=== PATIENT | male | born 1975 | race Caucasian/White ===

== ENCOUNTER 2020-11-29 16:14 | Emergency (ER) | payer OTHER, SELFPAY ==
[2020-11-29 16:15] VITALS: BP 132/104; PULSE 118; RESP 18; TEMP 36.1; O2SAT 95; BMI 28.3
[2020-11-29 16:27] VITALS: BP 139/92; PULSE 113; RESP 20; O2SAT 92; O2SAT 93
--- NOTE | 2020-11-29 16:52 | RAD_ITS ---
STUDY: X-RAY CHEST REASON FOR EXAM: Male, 45 years old. cough TECHNIQUE: Frontal portable view of the chest COMPARISON: None. FINDINGS: The lungs are clear and expanded. There is no demonstrated pleural abnormality. Normal size heart. Normal mediastinum and daphne. Normal visualized pulmonary arteries. Normal visualized aortic arch and descending thoracic aorta. Normal visualized thoracic spine. Normal visualized ribs, clavicles, and shoulders. There is no demonstrated abnormality of the visualized soft tissue structures of the upper abdomen. RAD/Chest 1 View (Portable) IMPRESSION: Normal x-ray examination of the chest. Electronically Signed: Garrett Hathaway MD at 17:24 EDT Tel , Service support ,
[2020-11-29 17:07] LABS: Absolute Lymphocyte Count 0.76 X10^3/uL (0.83-4.51); Absolute Neutrophil Count 7.8 X10^3/uL (2.0-7.7); Basophil# 0.02 X10^3/uL; Basophil% 0.2 % (0-1); Eosinophil# 0.29 X10^3/uL; Hematocrit 47.3 % (40-54); Hemoglobin 15.9 g/dL (13.0-16.5); Lymphocyte # 0.76 X10^3/ul (0.83-4.51); Lymphocyte % 7.9 % (19-41); Mean Corp Hgb Conc 33.6 g/dL (32-36); Mean Corpuscular Hgb 27.8 pg (27.0-32.0); Mean Corpuscular Volume 82.7 fL (80-94); Mean Platelet Vol. 10.4 fl (6.2-12.0); Monocyte# 0.65 X10^3/uL; Monocyte% 6.8 % (0-10); NRBC Flagged by Analyzer 0 % (0-5); Neutrophil # 7.84 X10^3/uL (2.7-7.7); Neutrophil % 81.6 % (47-70); Platelet Count 159 K/mm3 (150-450); RBC Distribution Width CV 12.8 % (11.6-14.6); RBC Distribution Width SD 38.4 fl (35.1-43.9); Red Blood Count 5.72 M/mm3 (4.6-6.2); White Blood Count 9.6 K/mm3 (4.4-11.0)
[2020-11-29 17:34] LABS: ALB/GLOB Ratio 1.1 RATIO (0.9-2.4); AST(SGOT) 29 U/L (15-37); Alanine Aminotransfer ALT/SGPT 53 U/L (16-61); Albumin, Serum 3.9 g/dL (3.2-5.0); Alkaline Phosphatase 77 U/L (45-117); Anion Gap 7 (5-15); BUN 12 mg/dL (7-18); BUN/Creat Ratio 12.6 RATIO (10-20); Calcium,Total 8.9 mg/dL (8.5-10.1); Chloride 105 mmol/L (98-107); Creatinine, Serum 0.95 mg/dL (0.70-1.30); EST Glomerular Filtration Rate 91 mL/min (>60); Est Glom Filt Rate - Afr Amer 110 mL/min (>60); Estimated Creatinine Clearance 112.96 ml/min; Globulin 3.4 g/dL (2.2-4.2); Glucose 98 mg/dL (74-106); Lactic Acid 1.1 mmol/L (0.4-1.9); Potassium 3.8 mmol/L (3.5-5.1); Protein, Total 7.3 g/dL (6.4-8.2); Sodium Level 139 mmol/L (136-145)
[2020-11-29] MEDS: Ketorolac 30 MG/ML Syringe IV (17:34)
[2020-11-29 17:40] LABS: D-Dimer Quantitative (DVT/PE) 3.05 FEU/ug/m (0.27-0.49)
--- NOTE | 2020-11-29 17:57 | CT_ITS ---
STUDY: CTA CHEST REASON FOR EXAM: Male, 45 years old. sob RADIATION DOSAGE (If Supplied By Facility): CTDIvol = ( 10.74 ) mGy, DLP = ( 431.77 ) mGycm TECHNIQUE: The examination was performed with the intravenous administration of IV 100mL Isovue-370. Post-processing of the angiographic images was performed, with multiplanar reformation and 3D reconstruction. Individualized dose optimization techniques were used for this CT. COMPARISON: Portable chest 11/29/2020 FINDINGS: There is less than optimal opacification of the pulmonary arteries due to suboptimal bolus technique however, there is no definitive evidence for intraluminal clot within the visualized portions of the vessels.. Normal thoracic aorta and visualized great vessels. There is no demonstrated aortic dissection. Normal heart and pericardium. Normal mediastinum. Normal hilar regions. Normal visualized trachea and bronchi. The lungs are well expanded. Normal pulmonary parenchyma. Normal pleura. Normal chest wall structures. Dorsal spine demonstrates mild degenerative change Normal visualized upper abdomen. CT/CTA Chest W/WO Contrast IMPRESSION: No acute abnormalities. No definitive evidence for pulmonary embolus given less than optimal opacification of the pulmonary arteries. Electronically Signed: Gabino Ledezma MD at 18:54 EDT , Service support ,
[2020-11-29 18:06] VITALS: BP 131/83; PULSE 101; RESP 29; TEMP 36.6; O2SAT 95
[2020-11-29 19:19] VITALS: BP 137/95; PULSE 108; RESP 24; O2SAT 94
[2020-11-29 19:29] LABS: Probe Check PASS; Specimen Processing Control PASS
[2020-11-29 19:48] VITALS: BP 142/95; PULSE 113; RESP 21; TEMP 36.6; O2SAT 94
--- NOTE | 2020-11-29 20:02 | EX.ED.DYSGE1 ---
HPI History of Present Illness Chief Complaint: Shortness of Breath Informant: patient and spouse/S.O. Onset/Context/Timing Onset: Days (4 days) Context: Gradual Onset Current Severity: Moderate Maximum Severity: Moderate Narrative Narrative: Patient reports cough and chest tightness. He states last he developed congestion and sinus pressure. Yesterday he developed a cough with clear sputum. He also has some chest tightness. Patient does complain of body aches but no fever or chills. No change in smell or taste. He did not get the Covid vaccine. Patient did take some cold medicine today that included dextromethorphan which may account for the patient's tachycardia. PFSH PFSH Medical History Non-smoker no medical history Home Medications doxycycline monohydrate 100 mg PO BID #20 cap 11/29/20 [Rx Last Taken Unknown] Allergy/AdvReac Type Severity Reaction Status Date / Time No Known Allergies Allergy Verified 11/29/20 16:17 Social History Smoking Status: Never smoker ROS ROS ED Constitutional Constitutional ED: Denies chills or fever(s) Eyes Eyes: Denies change in vision ENT ENT ED: Denies sore throat Cardiovascular Cardiovascular: Reports chest pain Respiratory/Chest Respiratory/Chest: Reports cough, dyspnea and sputum Gastrointestinal Gastrointestinal: Denies abdominal pain, diarrhea, nausea or vomiting Genitourinary Genitourinary ED: Denies dysuria Musculoskeletal Musculoskeletal: Reports myalgias; Denies back pain Integumentary Denies rash Neurologic Neurologic: Denies headache(s) or weakness Psychiatric Psychiatric: Denies anxiety or depression Endocrine Endocrinology: Denies polydipsia or polyuria Allergic/Immunologic Allergic/Immunologic ED: Denies urticaria EXAM Physical Exam Const Vital Signs: 11/29/20 16:15 11/29/20 16:27 11/29/20 18:06 Temperature 97.0 F L 97.9 F Temperature Source Temporal Temporal Pulse Rate 118 H 113 H 101 H Respiratory Rate 18 20 H 29 H Respiratory Effort Normal Respiratory Depth Normal Respiratory Pattern Normal Blood Pressure 132/104 H 139/92 H 131/83 H Blood Pressure Mean 113 107 99 Pulse Ox 95 93 95 Oxygen Delivery Method Room Air Room Air Room Air 11/29/20 19:19 11/29/20 19:48 11/29/20 20:15 Temperature 97.8 F Temperature Source Temporal Pulse Rate 108 H 113 H 113 H Respiratory Rate 24 H 21 H 16 Respiratory Effort Respiratory Depth Respiratory Pattern Blood Pressure 137/95 H 142/95 H 135/91 H Blood Pressure Mean 109 110 Pulse Ox 94 94 95 Oxygen Delivery Method Room Air Room Air Positive well nourished and well developed General Appearance ED: well developed HEENT Reports normocephalic and head/scalp atraumatic Eyes PERRL and EOMs intact bilaterally Neck supple Chest Wall inspection of chest normal and palpation of chest normal Resp normal respiratory effort and clear to auscultation bilaterally Cardio regular rhythm Rate: tachycardic GI normal to inspection, nondistended, normoactive bowel sounds Palpation: soft Extremity normal to inspection Neuro oriented x3 and no sensory deficits noted Sensorium / Orientation: alert Motor Exam: strength 5/5 throughout Psych mental status grossly normal Skin no rashes or lesions noted MDM MDM MDM Narrative Medical decision making narrative: Lab work, chest x-ray, Covid test ordered. Lab Data Attestation: I reviewed the patient's lab results. Labs: Laboratory Results - last 24 hr 11/29/20 11/29/20 11/29/20 16:55 16:55 16:55 WBC 9.6 RBC 5.72 Hgb 15.9 Hct 47.3 MCV 82.7 MCH 27.8 MCHC 33.6 RDW Std Deviation 38.4 RDW Coeff of Sergio 12.8 Plt Count 159 MPV 10.4 Immature Gran % (Auto) 0.500 Neut % (Auto) 81.6 H Lymph % (Auto) 7.9 L [place] % (Auto) 6.8 Eos % (Auto) 3.0 Baso % (Auto) 0.2 Absolute Neuts (auto) 7.8 H Absolute Lymphs (auto) 0.76 L Nucleated RBC % 0 D-Dimer Quant (PE/DVT) 3.05 H* Sodium 139 Potassium 3.8 Chloride 105 Carbon Dioxide 27.0 Anion Gap 7 BUN 12 Creatinine 0.95 Estim Creat Clear Calc 112.96 Est GFR (MDRD) Af Amer 110 Est GFR (MDRD) Non-Af 91 BUN/Creatinine Ratio 12.6 Glucose 98 Lactic Acid Calcium 8.9 Total Bilirubin 1.10 H AST 29 ALT 53 Alkaline Phosphatase 77 Troponin I High Sens 5.0 Total Protein 7.3 Albumin 3.9 Globulin 3.4 Albumin/Globulin Ratio 1.1 COVID-19 (JOSELO) 11/29/20 11/29/20 16:55 18:21 WBC RBC Hgb Hct MCV MCH MCHC RDW Std Deviation RDW Coeff of Sergio Plt Count MPV Immature Gran % (Auto) Neut % (Auto) Lymph % (Auto) [place] % (Auto) Eos % (Auto) Baso % (Auto) Absolute Neuts (auto) Absolute Lymphs (auto) Nucleated RBC % D-Dimer Quant (PE/DVT) Sodium Potassium Chloride Carbon Dioxide Anion Gap BUN Creatinine Estim Creat Clear Calc Est GFR (MDRD) Af Amer Est GFR (MDRD) Non-Af BUN/Creatinine Ratio Glucose Lactic Acid 1.1 Calcium Total Bilirubin AST ALT Alkaline Phosphatase Troponin I High Sens Total Protein Albumin Globulin Albumin/Globulin Ratio COVID-19 (JOSELO) Negative Radiography Chest X-Ray - ED: 1 View, Read by ED Physician, Normal, Heart, Lungs and Mediastinum Diagnostic Testing: Radiology Impression Chest X-Ray 11/29/20 16:52 IMPRESSION: Normal x-ray examination of the chest. Electronically Signed: Garrett Hathaway MD at 17:24 EDT Tel , Service support , Chest CTA 11/29/20 17:57 IMPRESSION: No acute abnormalities. No definitive evidence for pulmonary embolus given less than optimal opacification of the pulmonary arteries. Electronically Signed: Gabino Ledezma MD at 18:54 EDT , Service support , Treatment and Re-Evaluation Comments:: Patient's chest x-ray per my interpretation was no infiltrate. Radiologist rotation is reviewed. Rapid Covid test returns negative. Blood work is unremarkable other than elevated D-dimer. CTA of the chest is obtained that reveals no evidence of PE or infiltrate. On repeat evaluation patient's heart rate is around 103. Test results discussed with he and . Patient be given prescription for doxycycline to treat bronchitis. Discharge Plan Triage Chief Complaint: Shortness of Breath ED Provider: Elizabeth Eng Dx/Rx/DC Orders Clinical Impression: Bronchitis Instructions: Acute Bronchitis Prescriptions: New doxycycline monohydrate 100 MG capsule 100 mg PO BID Qty: 20 RF: 0 Primary Care Provider: Vasiliy Colbert Referrals: Vasiliy Colbert DO [Primary Care Provider] - 5-7 Days Disposition Disposition: Home, Self Care Discharge Date/Time: 11/29/20 20:16
[2020-11-29] MEDS: Doxycycline 100 MG CAPSULE PO (20:11)
[2020-11-29 20:15] VITALS: BP 135/91; PULSE 113; RESP 16; O2SAT 95
== END 2020-11-29 20:16 | disposition home or self-care (01) ==
PROVIDERS: Emergency Provider Emergency Medicine; PCP Family Medicine
DX: J20.9 Acute bronchitis, unspecified (principal)
CPT/HCPCS: 71045; 71275; 80053; 83605; 84484; 85025; 85379; 87040; 87426; 87635; 96374; 99284; Q9967; U0005; A4216; U0003

== ENCOUNTER → 2023-07-19 | Outpatient (CLI) | payer BC, SELFPAY ==
[2023-07-19 08:02] LABS: Absolute Lymphocyte Count 1.63 X10^3/uL (0.83-4.51); Absolute Neutrophil Count 4.5 X10^3/uL (2.0-7.7); Basophil# 0.04 X10^3/uL; Basophil% 0.6 % (0-1); Eosinophils% 4.2 % (0-5); Hematocrit 45.1 % (40-54); Lymphocyte # 1.63 X10^3/ul (0.83-4.51); Lymphocyte % 22.9 % (19-41); Mean Corp Hgb Conc 33.3 g/dL (32-36); Mean Corpuscular Hgb 27.8 pg (27.0-32.0); Mean Corpuscular Volume 83.5 fL (80-94); Mean Platelet Vol. 10.8 fl (6.2-12.0); Monocyte# 0.61 X10^3/uL; Monocyte% 8.6 % (0-10); NRBC Flagged by Analyzer 0 % (0-5); Neutrophil # 4.52 X10^3/uL (2.7-7.7); Neutrophil % 63.3 % (47-70); Platelet Count 201 K/mm3 (150-450); RBC Distribution Width CV 13.3 % (11.6-14.6); RBC Distribution Width SD 40.7 fl (35.1-43.9); White Blood Count 7.1 K/mm3 (4.4-11.0)
[2023-07-19 08:35] LABS: ALB/GLOB Ratio 1.3 RATIO (0.9-2.4); AST(SGOT) 27 U/L (15-37); Alanine Aminotransfer ALT/SGPT 42 U/L (16-61); Albumin, Serum 3.9 g/dL (3.2-5.0); Alkaline Phosphatase 69 U/L (45-117); Anion Gap 4 (5-15); BUN 16 mg/dL (7-18); BUN/Creat Ratio 14.8 RATIO (10-20); Calcium,Total 9.1 mg/dL (8.5-10.1); Chloride 108 mmol/L (98-107); Cholesterol 238 mg/dL (200); Creatinine, Serum 1.08 mg/dL (0.70-1.30); EST Glomerular Filtration Rate 77 mL/min (>60); Est Glom Filt Rate - Afr Amer 94 mL/min (>60); Globulin 3.1 g/dL (2.2-4.2); Glucose 102 mg/dL (74-106); High Density Lipoprotein 50 mg/dL; Sodium Level 140 mmol/L (136-145); Triglycerides 69 mg/dL; Very Low Density Lipoprotein 14 mg/dL (5-40)
[2023-07-20 14:10] LABS: Lipoprotein A 25.4 nmol/L (<75.0)
== END | disposition home or self-care (01) ==
PROVIDERS: PCP Family Medicine; Referring Provider Family Medicine; Visit Provider Family Medicine
DX: Z00.00 Encounter for general adult medical examination without abnormal findings (principal); Z82.49 Family history of ischemic heart disease and other diseases of the circulatory system
CPT/HCPCS: 36415; 80053; 80061; 83695; 85025

== ENCOUNTER → 2023-08-16 | Outpatient (CLI) | payer BC, SELFPAY ==
--- NOTE | 2023-08-16 12:48 | ECHOD_ITS ---
Reason For Study: MURMUR Procedure This was a 2D Doppler, Color Flow transthoracic echocardiogram. Exam performed in department. Left Ventricle Normal LV size. Left ventricular systolic function is normal. The estimated ejection fraction is 60 %. No regional wall motion abnormalities noted. Right Ventricle Normal RV size. Normal systolic function. Atria Normal left atrium. Normal right atrium. Mitral Valve Bileaflet diffuse mitral valve thickening. Mild-Moderate (1-2+) eccentric mitral valve insufficiency. Tricuspid Valve Normal tricuspid valve. Mild tricuspid valve insufficiency. Aortic Valve Trisinus/trileaflet aortic valve. Pulmonic Valve Normal pulmonic valve. Great Vessels Normal aortic root. The pulmonary artery is normal size. Inferior vena cava collapse with respiration. Pericardium/Pleural No pericardial effusion. MMode/2D Measurements & Calculations LVIDd: 5.8 cm IVSd: 1.2 cm LVOT diam: 2.2 cm LVIDs: 3.0 cm LVPWd: 1.0 cm LVOT area: 3.8 cm2 RVDd: 3.8 cm FS: 48.6 % Ao root diam: 3.8 cm LAV(MOD-bp): 73.4 ml LVAd ap4: 25.2 cm2 LAV(MOD-bp) Indexed: 32.4 ml/m2 LVLd ap4: 7.2 cm LAV(MOD-sp2): 77.1 ml EDV(MOD-sp4): 74.7 ml LAV(MOD-sp4): 56.4 ml EDV(sp4-el): 74.8 ml LVAs ap4: 14.2 cm2 LVLs ap4: 5.7 cm ESV(MOD-sp4): 29.8 ml ESV(sp4-el): 29.9 ml EF(MOD-sp4): 60.0 % EF(sp4-el): 60.1 % LVAd ap2: 27.3 cm2 SV(MOD-sp4): 44.8 ml SV(MOD-sp2): 43.7 ml LVLd ap2: 8.2 cm EDV(MOD-sp2): 75.8 ml EDV(sp2-el): 76.9 ml LVAs ap2: 15.6 cm2 LVLs ap2: 6.4 cm ESV(MOD-sp2): 32.1 ml ESV(sp2-el): 32.3 ml EF(MOD-sp2): 57.7 % SV(sp4-el): 44.9 ml LA dimension(2D): 4.4 cm LA A4 area: 20.6 cm2 RA A4 area: 16.8 cm2 TAPSE: 1.9 cm Time Measurements MV dec time: 0.17 sec Doppler Measurements & Calculations MV E max thomas: 74.9 cm/sec Lat Peak E' Thomas: 17.1 cm/sec Med Peak E' Thomas: 9.2 cm/sec MV A max thomas: 66.7 cm/sec E/E' lat: 4.4 E/E' med: 8.1 MV E/A: 1.1 Ao V2 max: 144.8 cm/sec LV V1 max: 126.1 cm/sec MV dec slope: 450.4 cm/sec2 Ao max P.4 mmHg LV V1 max P.4 mmHg Ao V2 mean: 101.5 cm/sec LV V1 mean P.5 mmHg Ao mean P.7 mmHg LV V1 mean: 87.0 cm/sec Ao V2 VTI: 29.0 cm LV V1 VTI: 22.4 cm AV (velocity ratio): 0.77 BRIE(I,D): 3.0 cm2 BRIE(V,D): 3.3 cm2 SV(LVOT): 85.7 ml PA V2 max: 111.5 cm/sec PI end-d thomas: 76.5 cm/sec PA max PG (full): 2.5 mmHg TR max thomas: 198.6 cm/sec TR max P.8 mmHg ECHO/Echo Complete Interpretation Summary Normal LV size. Left ventricular systolic function is normal. The estimated ejection fraction is 60 %. Bileaflet diffuse mitral valve thickening. Mild-Moderate (1-2+) eccentric mitral valve insufficiency. Ordering Physician: Vasiliy Colbert Referring Physician: Vsailiy Colbert Performed By: Jazmín Pang RDCS and Student
== END | disposition home or self-care (01) ==
LOC: CVS 12:38
PROVIDERS: PCP Family Medicine; Referring Provider Family Medicine; Visit Provider Family Medicine
DX: R01.1 Cardiac murmur, unspecified (principal)
CPT/HCPCS: 93306

== ENCOUNTER 2024-01-30 08:07 | Day surgery (SDC) | payer BC, OTHER, SELFPAY ==
[2024-01-30] VITALS (8 sets, daily range): BP systolic 118–128; BP diastolic 73–87; PULSE 72–90; RESP 14–18; TEMP 36.2–36.6; O2SAT 96–99; BMI 27.7
--- NOTE | 2024-01-30 08:19 | PRE.ANES_ITS ---
ASA Classification* ASA Classification ASA Classification: 2 Assessment & Plan Anesthesia* Anesthesia Assessment Anesthesia Assessment: Discussed sedation and/or anesthesia options, risks, benefits, and alternatives with patient/parents/legal guardian/POA. Questions invited. The patient/parents/legal guardian/POA seems to understand and agrees to proceed with anesthesia plan. Reviewed the physical assessment, medical history, allergy history and patient home medications list prior to surgery/procedure/anesthetic and documented any changes. Performed airway and anesthesia risk assessments. Anesthesia Type Anesthesia Type: MAC (see written pre anesthesia record for full assessment) Anesthesia Focused Assessment* Airway Assessment Mouth opens: >3 cm Mallampati Score: II Focused Labs Anesthesia Preop lab: CBC WBC 7.1 K/mm3 (4.4-11.0) 07/19/23 07:22 RBC 5.40 M/mm3 (4.6-6.2) 07/19/23 07:22 Hgb 15.0 g/dL (13.0-16.5) 07/19/23 07:22 Hct 45.1 % (40-54) 07/19/23 07:22 Plt Count 201 K/mm3 (150-450) 07/19/23 07:22 CHEMISTRY Potassium 4.0 mmol/L (3.5-5.1) 07/19/23 07:22 Sodium 140 mmol/L (136-145) 07/19/23 07:22 BUN 16 mg/dL (7-18) 07/19/23 07:22 Creatinine 1.08 mg/dL (0.70-1.30) 07/19/23 07:22 Glucose 102 mg/dL (74-106) 07/19/23 07:22 COAG Pre-Assessment Diagnosis/Proposed Procedure Planned Operative Procedure(s): COLONOSCOPY Anesthesia History 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 When Was Last Pacemaker Check QUESTION #4 FULL TEXT: You/Your Family Experience fever (hyperthermia) with Anesthesia Last Oral Intake Last Oral intake: Last Oral Intake NPO since Meds taken in AM with sips of water? Meds patient instructed to take am of surgery PONV PONV - director of real estate: PONV - director of real estate Female No 01/25/24 15:44 HX of Motion Sickness No 01/25/24 15:44 HX of N/V After Surgery No 01/25/24 15:44 Non-Smoker Yes 01/25/24 15:44 Duration of Surgery greater No 01/25/24 15:44 than 60 minutes Number of Risk Factors 1 01/25/24 15:44 PONV Score Low Risk 01/25/24 15:44 Height & Weight Height & Weight: Anesthesia: Height & Weight Height 6 ft 2 in 01/03/24 09:30 Respiratory Assessment Respiratory Assessment - director of real estate: Respiratory Tract Infection Hx - director of real estate Hx Respiratory Tract Infection No 01/25/24 15:44 STOP Sleep Apnea STOP Sleep Apnea - director of real estate: STOP Sleep Apnea - director of real estate Hx Hypertension No 01/25/24 15:44 Hx Sleep Apnea No 01/25/24 15:44 CPAP BIPAP Do you snore loudly (louder No 01/25/24 15:44 than talking or can be heard Do you often feel tired/ No 01/25/24 15:44 fatigued/ sleepy during daytime? Has anyone observed you stop No 01/25/24 15:44 breathing during sleep? STOP Results Negative 01/25/24 15:44 QUESTION #5 FULL TEXT : Do you snore loudly (louder than talking or can be heard through closed doors)? Tobacco Use History Tobacco Use History - director of real estate: Tobacco Use History - director of real estate Tobacco Use Smoking Status Never smoker 01/25/24 15:44 Hx Tobacco Use No 01/25/24 15:44 Years Smoking Packs Smoked per Day Smoking Cessation Date was within the last 15 years Hx Smoking Cessation Date Hx Smoking Cessation Counseling Hematologic Medial History Hematologic Hx - director of real estate: Hematologic Medical Hx - manager long term care Hx of Blood Transfusion No 01/25/24 15:44 Hx of Transfusion in last 3 No 01/25/24 15:44 Months Date of Last Transfusion (if within last 3 months) Ever experience any problems No 01/25/24 15:44 with transfusion(s)? Specify any problems Hx of Preganancy in last 3 N/A 01/25/24 15:44 Months Nurse Filling Out Transfusion [id number] 01/25/24 15:44 & Questions: Date: 01/25/24 01/25/24 15:44 Time: 15:46 01/25/24 15:44 Patient unable to answer at this time (ie. confused, unrespo /Reproduction History /Reproductive History - director of real estate: /Reproductive Hx- director of real estate Hx Now Gestational Age (in weeks): EDC: Hx Hx Para Hx Section SAB Active Medications Active Medications: Current Medications Generic Name Dose Route Start Last Admin Trade Name Freq PRN Reason Stop Dose Admin Lactated Ringer's 1,000 mls @ 15 mls/hr 01/30/24 08:15 IV .Q48H GAL PFSH Medical History History of echocardiogram Non-smoker Home Medications ?Medication ?Instructions ?Recorded ?Last Taken ?Type NK 01/25/24 Unknown History Allergy/AdvReac Type Severity Reaction Status Date / Time No Known Allergies Allergy Verified 01/25/24 15:43 Family History Father Hypertension A-fib Dementia CAD (coronary artery disease) Heart valve replaced Social History household members: spouse housing: house current occupational status: employed current occupation: [employer] Smoking Status: Never smoker alcohol intake: current alcohol intake frequency: holidays/special occasions only substance use type: does not use Review of Systems (Anesthesia) ROS Narrative System reviewed and no additional complaints, except as documented.
[2024-01-30] MEDS: Lactated Ringers 1,000 ML 15 ML IV (08:29)
--- NOTE | 2024-01-30 09:00 | COLBX_PTH ---
PATIENT: SHELBY GUZMAN LOC: EN U#:[id number] AGE/SX: 48/M ROOM: RE01/30/[address]: Dr. Jase Nowak MD : 1975 BED: DIS: 01/30/2024 SPEC #: [id number] RECD: 01/30/24 11:00 STATUS: LENORA OBI #: [id number] STEFFI: 01/30/24 09:[address]: Jase Nowak DEPT: SURGICAL PATHOLOGY RECD BY: Jaja Salgado ENTERED: 01/30/24 12:37 SP TYPE: COLON BX OTHR DR: Dr. Vasiliy Colbert DO Tissues: A - Sigmoid colon biopsy B - Rectum, NOS Procedures: Surgery Specimen Level IV HEADER OPERATION: Colonoscopy with biopsy and polypectomy PRE-OP DIAGNOSIS: Encounter for screening for malignant neoplasm of colon TISSUE SUBMITTED: A- Sigmoid polyp biopsy, B- Rectal polyp MICROSCOPIC DIAGNOSIS A. Sigmoid colon polyp, biopsy: Hyperplastic polyp. B. Rectal polyp, biopsy: Hyperplastic polyp. AM. 01/31/2024 MICROSCOPIC DESCRIPTION Slides are reviewed. GROSS DESCRIPTION A. Received in fixative is one container labeled with the patient's name and designated Sigmoid polyps biopsy. The specimen consists of multiple irregular fragments of light zazueta soft tissue that in aggregate measure 1.0 x 0.3 x 0.1 cm. The specimen is totally submitted in one cassette. B. Received in fixative is one container labeled with the patient's name and designated Rectal polyp. The specimen consists of one irregular fragment of one zazueta-pink polyp measuring 1.0 x 0.5 x 0.4cm. The entire specimen is submitted in one cassette. 01/30/2024 TC:5 [facility]:[id number]
--- NOTE | 2024-01-30 09:18 | PCM.HP.STD ---
HPI - General General Date of Admission: 01/30/24 Date of Service: 01/30/24 Chief Complaint: Colon cancer screening HPI Narrative SHELBY GUZMAN, is a 48 M who presents for elective screening colonoscopy. He has no family history of colon polyps or colon cancers. He denies any GI symptoms. PFSH Medical History History of echocardiogram Non-smoker Home Medications ?Medication ?Instructions ?Recorded ?Last Taken ?Type NK 01/25/24 Unknown History Allergy/AdvReac Type Severity Reaction Status Date / Time No Known Allergies Allergy Verified 01/25/24 15:43 Family History Father Hypertension A-fib Dementia CAD (coronary artery disease) Heart valve replaced Social History household members: spouse housing: house current occupational status: employed current occupation: [employer] Smoking Status: Never smoker alcohol intake: current alcohol intake frequency: holidays/special occasions only substance use type: does not use Vital Signs Vital Signs Vital Signs: 01/30/24 08:31 01/30/24 08:31 Temperature 98 F Temperature Source Temporal Pulse Rate 90 Respiratory Rate 18 Respiratory Pattern Normal Blood Pressure 128/87 H Blood Pressure Mean 100 Blood Pressure Source Monitor Blood Pressure Position Semi-Fowlers Blood Pressure Location Right Arm Pulse Ox 96 Oxygen Delivery Method Room Air Weight Weight: 215 lb 12.8 oz Body Mass Index (BMI) 27.7 Physical Exam Const alert, oriented x3 and no apparent distress HEENT normocephalic Eyes PERRL Neck full ROM Chest Chest: symmetrical chest wall rise Resp normal air movement GI normal to inspection, nondistended, normoactive bowel sounds Assessment & Plan Assessment/Plan (1) Encounter for screening for malignant neoplasm of colon: PLAN: The patient is a 48-year-old male in need of a screening colonoscopy. He has no GI issues or complaints. No family history of colon polyps or colon cancer's. We have discussed the details of the planned procedure including the risks benefits and alternatives. He wishes to proceed. Colonoscopy will begin momentarily. Charges/Coding Visit Charges Inpatient E&M: 05020 Init Hosp L1
--- NOTE | 2024-01-30 10:06 | OP.CCLET_ITS ---
01/30/2024 Vasiliy Colbert [address] [place] [address] Re : Colonoscopy procedure for Keyur Red Dear Dr. Colbert This procedure was performed on Tuesday, January 30, 2024. My impressions and recommendations are as follows: Impressions : - Two 2 to 3 mm polyps in the sigmoid colon, removed with a cold biopsy forceps. Resected and retrieved. - One 10 mm polyp in the rectum, removed with a hot snare. Resected and retrieved. - The examination was otherwise normal on direct and retroflexion views. Recommendations : - Discharge patient to home (ambulatory). - High fiber diet indefinitely. - Await pathology results. - Repeat colonoscopy in 3 - 5 years for surveillance. - Return to my office PRN. - Continue present medications. My findings are described in the full procedure note, which is enclosed. If I can be of further assistance, please feel free to contact me at . Sincerely, Jase Nowak MD 01/30/2024 10:05:35 AM This report has been signed electronically.
--- NOTE | 2024-01-30 10:06 | OP.COLON_ITS ---
Patient Name: Keyur Red Procedure Date: 01/30/2024 9:09 AM Date of : 1975 Age: 48 Procedure: Colonoscopy Indications: Screening for colorectal malignant neoplasm Providers: Jase Nowak MD Referring MD: Jase Nowak MD Medicines: Propofol per Anesthesia Patient Profile: Refer to note in patient chart for documentation of history and physical. Last Colonoscopy: none. The patient's first colonoscopy is today. Complications: No immediate complications. Estimated blood loss: Minimal. Procedure: Pre-Anesthesia Assessment: - Prior to the procedure, a History and Physical was performed, and patient medications and allergies were reviewed. The patient's tolerance of previous anesthesia was also reviewed. The risks and benefits of the procedure and the sedation options and risks were discussed with the patient. All questions were answered, and informed consent was obtained. Prior Anticoagulants: The patient has taken no anticoagulant or antiplatelet agents. ASA Grade Assessment: II - A patient with mild systemic disease. After reviewing the risks and benefits, the patient was deemed in satisfactory condition to undergo the procedure. After I obtained informed consent, the scope was passed under direct vision. Throughout the procedure, the patient's blood pressure, pulse, and oxygen saturations were monitored continuously. The colonoscope was introduced through the anus and advanced to the cecum, identified by appendiceal orifice and ileocecal valve. The ileocecal valve, appendiceal orifice, and rectum were photographed. The entire colon was well visualized. The colonoscopy was performed without difficulty. The patient tolerated the procedure well. The quality of the bowel preparation was adequate. Moderate Sedation: See the other procedure note for documentation of moderate sedation with intraservice time. Scope In: 9:31:57 AM Scope Withdrawal Time 0 hours 17 minutes 7 seconds Scope Out: 9:57:12 AM Total Procedure Duration Time 0 hours 25 minutes 15 seconds Findings: The perianal and digital rectal examinations were normal. Two hyperplastic polyps were found in the sigmoid colon. The polyps were 2 to 3 mm in size. These polyps were removed with a cold biopsy forceps. Resection and retrieval were complete. Verification of patient identification for the specimen was done by the video game repair technician using the patient's name, date and medical record number. Estimated blood loss was minimal. A 10 mm polyp was found in the rectum. The polyp was semi-sessile. The polyp was removed with a hot snare. Resection and retrieval were complete. Verification of patient identification for the specimen was done by the video game repair technician using the patient's name, date and medical record number. The exam was otherwise without abnormality on direct and retroflexion views. Impression: - Two 2 to 3 mm polyps in the sigmoid colon, removed with a cold biopsy forceps. Resected and retrieved. - One 10 mm polyp in the rectum, removed with a hot snare. Resected and retrieved. - The examination was otherwise normal on direct and retroflexion views. Recommendation: - Discharge patient to home (ambulatory). - High fiber diet indefinitely. - Await pathology results. - Repeat colonoscopy in 3 - 5 years for surveillance. - Return to my office PRN. - Continue present medications. Procedure Code(s): --- Professional --- 30558, Colonoscopy, flexible; with removal of tumor(s), polyp(s), or other lesion(s) by snare technique 10419, 59, Colonoscopy, flexible; with biopsy, single or multiple Diagnosis Code(s): --- Professional --- Z12.11, Encounter for screening for malignant neoplasm of colon D12.8, Benign neoplasm of rectum D12.5, Benign neoplasm of sigmoid colon CPT copyright 2021 [employer]. All rights reserved. The codes documented in this report are preliminary and upon certified coder review may be revised to meet current compliance requirements. Jase Nowak MD 01/30/2024 10:05:35 AM This report has been signed electronically. Number of Addenda: 0 Note Initiated On: 01/30/2024 9:09 AM
--- NOTE | 2024-01-30 10:08 | PCM.POST.ANE ---
Anesthesia: Postop Eval I Current Vital Signs Temperature: 97.1 F Pulse Rate: 79 Blood Pressure: 127/75 Respiratory Rate: 14 Pulse Ox: 97 Oxygen Delivery Method: Room Air Assessment Airway patent: Yes Spontaneous unlabored respirations: Yes Mental status: Asleep nausea: No Vomiting: No Anesthesia Complication: No Fluid Hydration Crystalloid volume administer (ml): 600 Total IV fluid infused: 600 Progress Note Anesthesia document: Postop Eval 1 completed: Yes
--- NOTE | 2024-01-30 16:11 | PCM.POSTANE2 ---
Anesthesia Postop Eval I Sum Postop Eval Completion status Anesthesia document: Postop Eval 1 completed: Yes Anesthesia Postop Eval I Summary Anesthesia Postop Eval I Summary: Anesthesia Postop Eval I: Assessment Summary Airway patent Yes 01/30/24 10:09 [email or web address] Spontaneous unlabored Yes 01/30/24 10:09 [email or web address] respirations Mental status Asleep 01/30/24 10:09 [email or web address] nausea No 01/30/24 10:09 [email or web address] Vomiting No 01/30/24 10:09 [email or web address] Anesthesia Postop Eval I: Fluid Summary Crystalloid volume administer 600 01/30/24 10:09 [email or web address] (ml) Colloids volume administered ( ml) Blood Product volume administered (ml) Total IV fluid infused 600 01/30/24 10:09 [email or web address] Anesthesia Postop Eval I: Summary Notes Anesthesia Complication No 01/30/24 10:09 [email or web address] Anesthesia Complication Comment: Post-operative progress note Anesthesia: Postop Eval II Evaluation Mental status: Awake and Calm Pain Level: 0 nausea: No Vomiting: No Complications Anesthesia Complication: No
== END 2024-01-30 10:40 | disposition home or self-care (01) ==
LOC: EN 08:09 → AC 08:10
PROVIDERS: PCP Family Medicine; Referring Provider Family Medicine; Visit Provider Surgery
PROC: 0DJD8ZZ Inspection of Lower Intestinal Tract, Via Natural or Artificial Opening Endoscopic (ICD-10-PCS; CPT 45378; principal; 2024-01-30 08:55)
DX: Z12.11 Encounter for screening for malignant neoplasm of colon (principal); K63.5 Polyp of colon; K62.1 Rectal polyp
CPT/HCPCS: 45385; 45380; 88305; J7120; J2405

== ENCOUNTER → 2024-10-24 | Outpatient (CLI) | payer BC, OTHER, SELFPAY ==
[2024-10-24 15:26] LABS: Absolute Lymphocyte Count 1.45 X10^3/uL (0.83-4.51); Basophil# 0.04 X10^3/uL; Basophil% 0.8 % (0-1); Eosinophil# 0.26 X10^3/uL; Lymphocyte # 1.45 X10^3/ul (0.83-4.51); Lymphocyte % 28.2 % (19-41); Mean Corp Hgb Conc 32.6 g/dL (32-36); Mean Corpuscular Hgb 27.7 pg (27.0-32.0); Mean Corpuscular Volume 84.9 fL (80-94); Monocyte# 0.37 X10^3/uL; Monocyte% 7.2 % (0-10); NRBC Flagged by Analyzer 0 % (0-5); Neutrophil # 3.01 X10^3/uL (2.7-7.7); Neutrophil % 58.4 % (47-70); Platelet Count 215 K/mm3 (150-450); RBC Distribution Width CV 13.2 % (11.6-14.6); RBC Distribution Width SD 40.8 fl (35.1-43.9); Red Blood Count 5.42 M/mm3 (4.6-6.2); White Blood Count 5.2 K/mm3 (4.4-11.0)
[2024-10-24 15:58] LABS: ALB/GLOB Ratio 1.7 RATIO (0.9-2.4); AST(SGOT) 33 U/L (<=37); Alanine Aminotransfer ALT/SGPT 46 U/L (<=46); Albumin, Serum 4.3 g/dL (3.5-5.0); Alkaline Phosphatase 66 U/L (40-129); Anion Gap 11 (5-15); BUN 12 mg/dL (4-19); BUN/Creat Ratio 11.4 RATIO (10-20); Calcium,Total 9.5 mg/dL (7.6-11.0); Carbon Dioxide 23.9 mmol/L (21.0-32.0); Chloride 104 mmol/L (98-108); Cholesterol 215 mg/dL (<=200); Creatinine, Serum 1.03 mg/dL (0.70-1.20); EST Glomerular Filtration Rate 88 (>60); Globulin 2.6 g/dL (2.2-4.2); Glucose 99 mg/dL (70-99); High Density Lipoprotein 41 mg/dL; Low Density Lipoprotein Calc. 161 mg/dL; PSA,Total - Annual Screen 0.49 ng/mL (0.02-4.00); Potassium 4.3 mmol/L (3.3-5.1); Protein, Total 6.8 g/dL (5.9-8.4); Sodium Level 139 mmol/L (133-145); Total Bilirubin 0.39 mg/dL (0.00-1.30); Triglycerides 63 mg/dL; Very Low Density Lipoprotein 13 mg/dL (5-40); cholesterol:hdl ratio screen 5.22
== END | disposition home or self-care (01) ==
LOC: BFHLAB 11:25
PROVIDERS: PCP Family Medicine; Visit Provider Family Medicine
DX: Z00.00 Encounter for general adult medical examination without abnormal findings (principal); Z12.5 Encounter for screening for malignant neoplasm of prostate
CPT/HCPCS: 36415; 80053; 80061; 84153; 85025; G0103